=== PATIENT | male | born 1955 ===

== ENCOUNTER 2018-03-26 08:35 | Emergency (ER) | payer MEDICARE ==
[2018-03-26 08:43] VITALS: BMI 27.4
[2018-03-26 08:50] VITALS: TEMP 97.9
[2018-03-26 09:31] LABS: SQUAMOUS EPITHIAL < 1 /hpf (0-5); URINE BILIRUBIN NEGATIVE (NEGATIVE); URINE BLOOD NEGATIVE (NEGATIVE); URINE CLARITY Hazy (Clear); URINE COLOR Yellow (YELLOW); URINE GLUCOSE (UA) NORMAL (Normal); URINE LEUKOCYTE ESTERASE NEG Leu/uL (Negative); URINE PROTEIN NEGATIVE (NEGATIVE); URINE UROBILINOGEN NORMAL mg/dL (0.2-1.0)
[2018-03-26 10:24] VITALS: BP 123/82; PULSE 68; RESP 18; O2SAT 95
--- NOTE | 2018-03-26 11:54 | C.PDOC ---
History Of Present Illness 62 y/o male presents to the ED complaining of right groin for two months. He states the pain increases as he moves his legs and when he bends down. The patient denies any hematuria or dysuria. He admits to taking pain medication at home but he ran out [employer]. Time Seen by Provider: 03/26/18 09:03 Chief Complaint (Nursing): Groin Pain History Per: Patient History/Exam Limitations: no limitations Onset/Duration Of Symptoms: Days Current Symptoms Are (Timing): Still Present Quality Of Discomfort: "Pain" Associated Symptoms: denies: Other (hematuria or dysuria) Alleviating Factors: OTC Meds Recent travel outside of the [place]: No Past Medical History Reviewed: Historical Data, Nursing Documentation, Vital Signs Vital Signs: Last Vital Signs Temp 97.9 F 03/26/18 08:41 Pulse 68 03/26/18 10:23 Resp 18 03/26/18 10:23 BP 123/82 03/26/18 10:23 Pulse Ox 95 03/26/18 12:00 - Medical History PMH: Asthma, Deep Vein Thrombosis, HTN, Hypercholesterolemia Other Surgeries: Orthopedic surgery - [facility] Procedures NEBULIZER THERAPY (11/06/13) Family History: States: Unknown Family Hx - Social History Hx Alcohol Use: No Hx Substance Use: No - Immunization History Hx Tetanus Toxoid Vaccination: No Hx Influenza Vaccination: No Hx Pneumococcal Vaccination: No Review Of Systems Except As Marked, All Systems Reviewed And Found Negative. Constitutional: Negative for: Fever Genitourinary: Positive for: Other (groin pain ). Negative for: Dysuria, Hematuria Skin: Negative for: Lesions, Bruising Neurological: Negative for: Numbness Physical Exam - Physical Exam Appears: Well, Non-toxic, No Acute Distress Skin: Normal Color, Warm, No Rash Head: Atraumatic, Normacephalic Eye(s): bilateral: PERRL, EOMI Ear(s): Bilateral: Normal Oral Mucosa: Moist Neck: Normal ROM Chest: Symmetrical Cardiovascular: Rhythm Regular, No Murmur Respiratory: Normal Breath Sounds, No Rales, No Rhonchi, No Wheezing Gastrointestinal/Abdominal: Normal Exam, Bowel Sounds, Soft, No Tenderness Male Genital: Normal Inspection Extremity: Normal ROM Extremity: Bilateral: Atraumatic Pulses: Left Radial: Normal, Right Radial: Normal Neurological/Psych: Oriented x3 Gait: Steady ED Course And Treatment O2 Sat by Pulse Oximetry: 95 (RA) Pulse Ox Interpretation: Normal Medical Decision Making Medical Decision Making: Impression: 62 y/o male with right-sided groin pain Plan: -- Motrin 600 mg PO --Urine Culture --UA On reevaluation he had no groin pain. The patient is stable for discharge Disposition - Disposition Referrals: [facility] Charmaine Hoffman, [Non-Staff] - Disposition: HOME/ ROUTINE Disposition Time: 09:30 Condition: IMPROVED Additional Instructions: BAM THEN, thank you for letting us take care of you today. The emergency medical care you received today was directed at your acute symptoms. If you were prescribed any medication, please fill it and take as directed. It may take several days for your symptoms to resolve. Return to the Emergency Department if your symptoms worsen, do not improve, or if you have any other problems. Please contact your doctor or call one of the physicians/clinics you have been referred to that are listed on the Patient Visit Information form that is included in your discharge packet. Bring any paperwork you were given at discharge with you along with any medications you are taking to your follow up visit. Our treatment cannot replace ongoing medical care by a primary care provider outside of the emergency department. Thank you for allowing the [facility] team to be part of your care today. Follow up with your primary care doctor in 3-5 days for re-evaluation and further management. 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 - Scribe Statement The provider has reviewed the documentation as recorded by the Scribe (La Rebollar) Provider Attestation: All medical record entries made by the Scribe were at my direction and personally dictated by me. I have reviewed the chart and agree that the record accurately reflects my personal performance of the history, physical exam, medical decision making, and the department course for this patient. I have also personally directed, reviewed, and agree with the discharge instructions and disposition.
== END 2018-03-26 10:24 | disposition home or self-care (01) ==
LOC: C.ER 08:35
DX: S39.011A Strain of muscle, fascia and tendon of abdomen, initial encounter (principal); X58.XXXA Exposure to other specified factors, initial encounter; I10 Essential (primary) hypertension; E78.00 Pure hypercholesterolemia, unspecified